=== PATIENT | male | born 1990 | race Caucasian/White ===

== ENCOUNTER 2018-03-11 23:37 | Emergency (ER) | payer SELFPAY ==
[2018-03-12] MEDS ORDERED: ONDANSETRON 4 MG/2 ML VIAL ONE (00:27)
[2018-03-12 00:37] LABS: Absolute Lymphocytes (CBC) 1.7 K/uL (0.7-4.9); Absolute Monocytes 0.6 K/uL (0.1-1.3); Absolute Neutrophil 5.6 K/uL (1.8-8.0); Eosinophils % 2.1 % (0-4.4); Hematocrit 42.7 % (39.6-49.0); Lymphocytes % 20.6 % (15.3-44.8); MCH 31.1 pg (27.0-35.0); MCV 87.5 fL (80-100); MPV 8.8 fL (7.6-11.3); Monocytes % 7.8 % (3.3-12.3); RBC Red Blood Cell Count 4.89 M/uL (4.33-5.43)
[2018-03-12 00:39] LABS: Protime INR 1.11
[2018-03-12] MEDS ORDERED: MECLIZINE HCL 12.5 MG TAB ONE (00:43)
[2018-03-12] MEDS ORDERED: NA CHLORIDE 0.9% 1,000 ML ONE (00:44)
[2018-03-12 02:22] LABS: Albumin 4.3 g/dL (3.4-5.0); Bilirubin Direct 0.2 mg/dL (0-0.2); Magnesium 2.8 mg/dL (1.8-2.4); Potassium 3.5 mmol/L (3.5-5.1); Protein, Total 7.3 g/dL (6.4-8.2)
--- NOTE | 2018-03-12 02:35 | EDPHYS ---
Physician Documentation [facility] Name: Rah Li Age: 28 yrs Sex: Male : 1990 Arrival Date: 03/11/2018 Time: 23:38 Bed 20 Private MD: ED Physician Yoni Cannon HPI: 03/12 01:43 This 28 yrs old Male presents to ER via Wheelchair with complaints of Passed jr8 Out Prior To Arrival, Abdominal Pain. 01:43 The patient has experienced syncope. Onset: The symptoms/episode began/occurred jr8 acutely, today. Duration: This was a single episode. Context: the episode(s) was witnessed, by family. Associated injury: The patient did not suffer any apparent associated injury. Associated signs and symptoms: Pertinent positives: diaphoresis, dizziness, nausea. Current symptoms: Currently, the patient is not experiencing any symptoms, the patient feels back to baseline, no decreased level of consciousness, no confusion, no dysphasia, no headache, no paralysis, no visual changes. The patient has not experienced similar symptoms in the past. The patient has not recently seen a physician. Patient stated that they had recently finished eating fast food. Stated that his stomach started to become upset. While driving had to caul puller because he became nauseated that then felt as if the room was spinning. Stated that he started to sweat. Passed out prior to arrival. Significant other brought him to hospital at that time. Stated that he feels better while laying still . Historical: - Allergies: 03/11 23:59 No Known Allergies; jd3 - Home Meds: 23:59 None [Active]; jd3 - PMHx: 23:59 None; jd3 - PSHx: 23:59 left eye sx; jd3 - Immunization history:: Adult Immunizations up to date. - Social history:: Smoking status: Patient uses tobacco products, denies chronic smoking, but will smoke occasionally, Patient uses street drugs, cocaine, Methamphetamine (Meth) last used 03/09/18. - Ebola Screening: : Patient negative for fever greater than or equal to 101.5 degrees Fahrenheit, and additional compatible Ebola Virus Disease symptoms. ROS: 03/12 01:43 Constitutional: Negative for fever, chills, and weight loss. jr8 Abdomen/GI: Positive for abdominal pain, nausea, Negative for vomiting, diarrhea, constipation, abdominal cramps, abdominal distension, anorexia, dysphagia, hematemesis, black/tarry stool, rectal pain, rectal bleeding, bowel incontinence, flatulence. Neuro: Positive for dizziness, syncope, Negative for altered mental status, gait disturbance, headache, hearing loss, loss of consciousness, numbness, seizure activity, speech changes, tingling, tinnitus, tremor, visual changes, weakness. All other systems are negative. Exam: 01:43 Eyes: Pupils equal round and reactive to light, extra-ocular motions intact. Lids and jr8 lashes normal. Conjunctiva and sclera are non-icteric and not injected. Cornea within normal limits. Periorbital areas with no swelling, redness, or edema. ENT: Nares patent. No nasal discharge, no septal abnormalities noted. Tympanic membranes are normal and external auditory canals are clear. Oropharynx with no redness, swelling, or masses, exudates, or evidence of obstruction, uvula midline. Mucous membranes moist. Neck: Trachea midline, no thyromegaly or masses palpated, and no cervical lymphadenopathy. Supple, full range of motion without nuchal rigidity, or vertebral point tenderness. No Meningismus. Cardiovascular: Regular rate and rhythm with a normal S1 and S2. No gallops, murmurs, or rubs. Normal PMI, no JVD. No pulse deficits. Respiratory: Lungs have equal breath sounds bilaterally, clear to auscultation and percussion. No rales, rhonchi or wheezes noted. No increased work of breathing, no retractions or nasal flaring. Abdomen/GI: Soft, non-tender, with normal bowel sounds. No distension or tympany. No guarding or rebound. No evidence of tenderness throughout. Back: No spinal tenderness. No costovertebral tenderness. Full range of motion. Skin: Warm, dry with normal turgor. Normal color with no rashes, no lesions, and no evidence of cellulitis. MS/ Extremity: Pulses equal, no cyanosis. Neurovascular intact. Full, normal range of motion. Neuro: Awake and alert, GCS 15, oriented to person, place, time, and situation. Cranial nerves II-XII grossly intact. Motor strength 5/5 in all extremities. Sensory grossly intact. Cerebellar exam normal. Normal gait. Vital Signs: 00:00 BP 109 / 56; Pulse 91; Resp 18 S; Temp 98.0(O); Pulse Ox 100% on R/A; Weight 104.33 kg jd3 (R); Height 6 ft. 0 in. (182.88 cm) (R); Pain 4/10; 01:08 BP 122 / 70; Pulse 80; Resp 17 S; Pulse Ox 98% on R/A; jd3 02:06 BP 134 / 76; Pulse 95; Resp 17 S; Pulse Ox 95% on R/A; jd3 03:02 BP 128 / 82; Pulse 70; Resp 18; Pulse Ox 98% on R/A; ea 00:00 Body Mass Index 31.19 (104.33 kg, 182.88 cm) jd3 MDM: 00:07 Patient medically screened[address] [facility] 02:33 Data reviewed: vital signs, nurses notes, lab test result(s), EKG, radiologic studies, jr8 plain films. Data interpreted: Pulse oximetry: on room air is 95 %. Interpretation: normal. Counseling: I had a detailed discussion with the patient and/or guardian regarding: the historical points, exam findings, and any diagnostic results supporting the discharge/admit diagnosis, lab results, radiology results, the need for outpatient follow up, a family practitioner, to return to the emergency department if symptoms worsen or persist or if there are any questions or concerns that arise at home. Response to treatment: the patient's symptoms have markedly improved after treatment, patient is well hydrated. 03/12 00:07 Order name: Basic Metabolic Panel; Complete Time: 02:03/12 00:07 Order name: CBC with Diff; Complete Time: 00:50 03/12 00:07 Order name: LFT's; Complete Time: :03/12 00:07 Order name: Magnesium; Complete Time: :03/12 00:07 Order name: NT PRO-BNP; Complete Time: :03/12 00:07 Order name: PT-INR; Complete Time: 00:50 03/12 00:07 Order name: Troponin (emerg Dept Use Only); Complete Time: 02:03/12 00:07 Order name: XRAY Chest (1 view) [facility] 03/12 00:07 Order name: EKG; Complete Time: 00:08 03/12 00:07 Order name: Cardiac monitoring; Complete Time: 00:15 jr8 08/20 00:07 Order name: Lipase; Complete Time: :03/12 00:07 Order name: EKG - Nurse/Tech; Complete Time: :03/12 00:07 Order name: IV Saline Lock; Complete Time: 00:03/12 00:07 Order name: Labs collected and sent; Complete Time: 00:03/12 00:07 Order name: O2 Per Protocol; Complete Time: 03/12 00:07 Order name: O2 Sat Monitoring; Complete Time: Administered Medications: 00:25 Drug: Zofran 4 mg Route: IVP; Site: left antecubital; jd3 02:25 Follow up: Response: No adverse reaction jd3 00:44 Drug: NS 0.9% 1000 ml Route: IV; Rate: 1000 ml; Site: left antecubital; jd3 02:25 Follow up: Response: No adverse reaction; IV Status: Completed infusion; IV Intake: jd3 1000ml 00:44 Drug: Antivert 50 mg Route: PO; jd3 02:25 Follow up: Response: No adverse reaction jd3 Point of Care Testing: Blood Glucose: 02:31 Blood Glucose: 96 mg/dL; ea Ranges: Critical Glucose Levels:Adult <50 mg/dl or >400 mg/dl <40 mg/dl or >180 mg/dl Disposition: 06:54 Co-signature as Attending Physician, Yoni Cannon MD I agree with the assessment and ps1 plan of care. Disposition: 03/12/18 02:34 Discharged to Home. Impression: Vertigo. - Condition is Stable. - Discharge Instructions: Vertigo. - Prescriptions for Antivert 25 mg Oral Tablet - take 1 tablet by ORAL route every 8 hours As needed; 20 tablet. Zofran 4 mg Oral Tablet - take 1 tablet by ORAL route every 12 hours As needed; 20 tablet. - Medication Reconciliation Form, Thank You Letter, Antibiotic Education, Prescription Opioid Use form. - Follow up: Private Physician; When: 2 - 3 days; Reason: Recheck today's complaints, Continuance of care, Re-evaluation by your physician. - Problem is new. - Symptoms have improved. Signatures: Dispatcher [employer] EDMS Rey Valente PA PA jr8 Christina Daniel, RN Quan Ahn ea, RN RN jd3 Singer, Phillip, MD MD ps1 Corrections: (The following items were deleted from the chart) 00:05 03/11 23:59 Social history: Smoking status: Patient uses tobacco products, denies jd3 chronic smoking, but will smoke occasionally, jd3 03/12 03:02 02:34 03/12/2018 02:34 Discharged to Home. Impression: Vertigo. Condition is Stable. ea Forms are Medication Reconciliation Form, Thank You Letter, Antibiotic Education, Prescription Opioid Use. Follow up: Private Physician; When: 2 - 3 days; Reason: Recheck today's complaints, Continuance of care, Re-evaluation by your physician. Problem is new. Symptoms have improved. jr8
--- NOTE | 2018-03-12 02:35 | ER ---
Nurse's Notes [facility] Name: Rah Li Age: 28 yrs Sex: Male : 1990 Arrival Date: 03/11/2018 Time: 23:38 Bed 20 Private MD: Diagnosis: Vertigo Presentation: 03/11 23:57 Presenting complaint: Patient states: "I started feeling very faint on the way home jd3 from dinner, very dizzy and nauseous." family reported pt passed out 3 times in route to hospital. pt reports drinking 4-5 beers with dinner. Transition of care: patient was not received from another setting of care. Onset of symptoms was March 11, 2018. Risk Assessment: Do you want to hurt yourself or someone else? Patient reports no desire to harm self or others. Initial Sepsis Screen: Does the patient meet any 2 criteria? HR > 90 bpm. No. Patient's initial sepsis screen is negative. Does the patient have a suspected source of infection? No. Patient's initial sepsis screen is negative. Care prior to arrival: None. 23:57 Method Of Arrival: Wheelchair jd3 23:57 Acuity: ETHAN 3 jd3 Historical: - Allergies: 23:59 No Known Allergies; jd3 - Home Meds: 23:59 None [Active]; jd3 - PMHx: 23:59 None; jd3 - PSHx: 23:59 left eye sx; jd3 - Immunization history:: Adult Immunizations up to date. - Social history:: Smoking status: Patient uses tobacco products, denies chronic smoking, but will smoke occasionally, Patient uses street drugs, cocaine, Methamphetamine (Meth) last used 03/09/18. - Ebola Screening: : Patient negative for fever greater than or equal to 101.5 degrees Fahrenheit, and additional compatible Ebola Virus Disease symptoms. Screenin/20 00:03 Abuse screen: Denies threats or abuse. Nutritional screening: No deficits noted. jd3 Tuberculosis screening: No symptoms or risk factors identified. Fall Risk Ambulatory Aid- None/Bed Rest/Nurse Assist (0 pts). Gait- Weak (10 pts.). Mental Status- Oriented to own ability (0 pts). Total Irby Fall Scale indicates No Risk (0-24 pts). Assessment: 00:01 General: Appears uncomfortable, Behavior is cooperative, appropriate for age, anxious. jd3 Pain: Complains of pain in right lower quadrant Pain currently is 4 out of 10 on a pain scale. Quality of pain is described as sharp, Also complains of nausea. Neuro: Level of Consciousness is awake, alert, obeys commands, Oriented to person, place, time, situation, Appropriate for age Moves all extremities. Speech is normal, Pupils are PERRLA, Intact Reports dizziness, a syncopal episode. Cardiovascular: Heart tones S1 S2 present Capillary refill < 3 seconds. Respiratory: Airway is patent Respiratory effort is even, unlabored, Respiratory pattern is regular, symmetrical, Breath sounds are clear bilaterally. GI: Abdomen is round Bowel sounds present X 4 quads. Abd is soft Abdomen is tender to palpation in right lower quadrant Reports nausea. : No signs and/or symptoms were reported regarding the genitourinary system. EENT: No signs and/or symptoms were reported regarding the EENT system. Derm: Skin is intact, Skin is diaphoretic, Skin is normal, Skin temperature is warm. Musculoskeletal: Circulation, motion, and sensation intact. Range of motion: intact in all extremities. 01:08 Reassessment: Patient appears in no apparent distress at this time. Patient and/or jd3 family updated on plan of care and expected duration. Pain level reassessed. Patient is alert, oriented x 3, equal unlabored respirations, skin warm/dry/pink. 02:07 Reassessment: Patient appears in no apparent distress at this time. Patient and/or jd3 family updated on plan of care and expected duration. Pain level reassessed. Patient is alert, oriented x 3, equal unlabored respirations, skin warm/dry/pink. Vital Signs: 00:00 BP 109 / 56; Pulse 91; Resp 18 S; Temp 98.0(O); Pulse Ox 100% on R/A; Weight 104.33 kg jd3 (R); Height 6 ft. 0 in. (182.88 cm) (R); Pain 4/; 01:08 BP 122 / 70; Pulse 80; Resp 17 S; Pulse Ox 98% on R/A; jd3 02:06 BP 134 / 76; Pulse 95; Resp 17 S; Pulse Ox 95% on R/A; jd3 03:02 BP 128 / 82; Pulse 70; Resp 18; Pulse Ox 98% on R/A; ea 00:00 Body Mass Index 31.19 (104.33 kg, 182.88 cm) jd3 ED Course: 03/11 23:38 Patient arrived in ED. ds1 23:45 Quan Loyola, RN is Primary Nurse. jd3 23:58 Triage completed. jd3 08 00:00 Arm band placed on. jd3 00:03 Patient has correct armband on for positive identification. Bed in low position. Call jd3 light in reach. Side rails up X 1. Adult w/ patient. 00:07 Rey Valente PA is PHCP. jr8 00:07 Yoni Cannon MD is Attending Physician. jr8 00:20 Initial lab(s) drawn, by me, sent to lab. Inserted saline lock: 20 gauge in left bb antecubital area, using aseptic technique. Blood collected. 00:22 X-ray completed. Portable x-ray completed in exam room. Patient tolerated procedure kw well. 00:24 XRAY Chest (1 view) In Process Unspecified. EDMS 03:01 No provider procedures requiring assistance completed. IV discontinued, intact, ea bleeding controlled, No redness/swelling at site. Pressure dressing applied. Administered Medications: 00:25 Drug: Zofran 4 mg Route: IVP; Site: left antecubital; jd3 02:25 Follow up: Response: No adverse reaction jd3 00:44 Drug: NS 0.9% 1000 ml Route: IV; Rate: 1000 ml; Site: left antecubital; jd3 02:25 Follow up: Response: No adverse reaction; IV Status: Completed infusion; IV Intake: jd3 1000ml 00:44 Drug: Antivert 50 mg Route: PO; jd3 02:25 Follow up: Response: No adverse reaction jd3 Point of Care Testing: Blood Glucose: 02:31 Blood Glucose: 96 mg/dL; ea Ranges: Intake: 02:25 IV: 1000ml; Total: 1000ml. jd3 Outcome: 02:34 Discharge ordered by . jr8 03:01 Discharged to home ambulatory, with significant other. ea 03:01 Condition: improved 03:01 Discharge instructions given to patient, Instructed on discharge instructions, follow up and referral plans. medication usage, Demonstrated understanding of instructions, follow-up care, medications, Prescriptions given X 2. 03:02 Patient left the ED. ea Signatures: Dispatcher [employer] [place] ds1 Dedra Cho RN RN Emy Hernandez Josh, PA PA jr8 Christina Daniel RN RN ea Davies, Jonathon, RN RN jd3 Corrections: (The following items were deleted from the chart) 00:05 08 23:59 Social history: Smoking status: Patient uses tobacco products, denies jd3 chronic smoking, but will smoke occasionally, jd3 03/12 00:33 00:01 Cardiovascular: Heart tones S1 S2 present Capillary refill < 3 seconds Patient's jd3 skin is warm and dry. jd3 00:33 00:01 Derm: Skin is intact, Skin is dry, Skin is normal, Skin temperature is warm jd3 jd3
--- NOTE | 2018-03-12 07:48 | RAD REPORT ---
EXAM DESCRIPTION: [facility] Single View03/12/2018 12:23 am CLINICAL HISTORY: Abdominal pain COMPARISON: none FINDINGS: The lungs appear clear of acute infiltrate. The heart is normal size IMPRESSION: No acute abnormalities displayed
--- NOTE | 2018-03-12 07:50 | EKG ---
Test Date: 2018-03-12 Test Time: 00:18:17 Laborer/Grade Check: CASI MEASUREMENT RESULTS: Intervals: Rate: 106 NH: 134 QRSD: 88 QT: 342 QTc: 454 [place]: P: 24 NH: 134 QRS: 65 T: 14 INTERPRETIVE STATEMENTS: Sinus tachycardia Otherwise normal ECG No previous ECG available for comparison Electronically Signed On 03-12-18 07:49:31 CDT by José Manuel Adam
== END 2018-03-12 03:02 | disposition home or self-care (01) ==
LOC: ER 23:37
DX: R42 Dizziness and giddiness (principal); Z72.0 Tobacco use
CPT/HCPCS: 36415; 71045; 80048; 80076; 82962; 83690; 83735; 83880; 84484; 85025; 85610; 93005; 96361; 96374; 99284; J2405; J7030